=== PATIENT | male | born 1990 | race African-American/Black ===

== ENCOUNTER 2023-11-06 14:41 | Emergency (ER) | payer BC ==
[2023-11-06 15:02] VITALS: BMI 47.0
[2023-11-06] MEDS: SODIUM CHLORIDE 0.9% 500 ML INFUS.BAG IV ONE (16:50)
[2023-11-06 16:58] LABS: BASO % 0.2 % (0-2.0); EOS % 0.2 % (0-4.5); HEMATOCRIT 41.5 % (35.4-49); HEMOGLOBIN 13.8 GM/dL (11.7-16.9); LYMPH % 21.4 % (8-40); MCH 26.6 pg (25.7-33.7); MCHC 33.2 g/dl (32.0-35.9); MEAN CELL VOLUME 80.2 fl (80-96); MONO % 10.2 % (3.8-10.2); PLATELET COUNT 294 10^3/uL (134-434); RBC 5.17 M/mm3 (4.00-5.60); RDW 14.2 % (11.9-15.9); WHITE BLOOD COUNT 4.9 K/mm3 (4.0-10.0)
[2023-11-06 17:19] LABS: POTASSIUM 3.9 mmol/L (3.5-5.1)
[2023-11-06 17:21] LABS: CALCIUM 9.3 mg/dL (8.5-10.1)
[2023-11-06 17:22] LABS: ALBUMIN 3.8 g/dl (3.4-5.0); BLOOD UREA NITROGEN 11.1 mg/dL (7-18); MAGNESIUM 2.2 mg/dL (1.8-2.4)
[2023-11-06 17:24] LABS: CHOLESTEROL 188 mg/dL (50-200)
[2023-11-06 17:25] LABS: CREATININE 1.2 mg/dL (0.55-1.3); LDL CHOLESTEROL (ONLY SJRH) 129 mg/dL (5-100)
[2023-11-06 17:26] LABS: BILIRUBIN,TOTAL 1.4 mg/dL (0.2-1)
[2023-11-06 17:27] LABS: HDL CHOLESTEROL 38 mg/dL (40-60)
[2023-11-06] MEDS ORDERED: ACETAMINOPHEN 325 MG TABLET (FP) ONE (18:31)
[2023-11-06] MEDS: ACETAMINOPHEN 325 MG TABLET (FP) PO ONE (18:34)
[2023-11-06 20:42] VITALS: BP 138/86; PULSE 88; RESP 17; TEMP 98.8
== END 2023-11-06 20:57 | disposition home or self-care (01) ==
LOC: JER 14:41
DX: R07.9 Chest pain, unspecified (principal); R11.0 Nausea; R19.7 Diarrhea, unspecified; R94.31 Abnormal electrocardiogram [ECG] [EKG]; Z20.822 Contact with and (suspected) exposure to COVID-19
CPT/HCPCS: 0241U-QW; 36415; 71045-TC-FY; 80053; 80061; 83735; 84484; 85025; 93005; 93010; 99285-25